=== PATIENT | female | born 1955 | race African-American/Black ===

== ENCOUNTER 2021-03-15 08:26 | Day surgery (SDC) | payer OTHER ==
[2021-03-13 11:49] VITALS: BMI 38.2
[2021-03-15] MEDS ORDERED: ROPIVACAINE HCL 0.5% 30ML VIAL ONE (10:29)
[2021-03-15] MEDS ORDERED: MIDAZOLAM HCL 2 MG/2 ML SINGLE DOSE VIAL ONE (10:29)
[2021-03-15] MEDS ORDERED: BUPIVACAINE HCL/PF 0.25% (2.5MG/ML) 10 ML VIAL ONE (10:32)
[2021-03-15] MEDS ORDERED: PROPOFOL 20 ML ONE (11:01)
[2021-03-15] MEDS ORDERED: ONDANSETRON 4 MG/2 ML VIAL IVPUSH PRN (12:16)
[2021-03-15 15:19] VITALS: TEMP 97
[2021-03-15 15:28] VITALS: BP 132/78; PULSE 68
== END 2021-03-15 14:15 | disposition home or self-care (01) ==
LOC: FASU 08:26
PROVIDERS: ATTEND Orthopaedic Surgery Hand Surgery
PROC: 0LX60ZZ Transfer Left Lower Arm and Wrist Tendon, Open Approach (ICD-10-PCS; 2021-03-15)
PROC: 0LX80ZZ Transfer Left Hand Tendon, Open Approach (ICD-10-PCS; principal; 2021-03-15 11:09)
DX: M18.12 Unilateral primary osteoarthritis of first carpometacarpal joint, left hand (principal)
CPT/HCPCS: 82962; 94760